=== PATIENT | male | born 1950 | race Caucasian/White ===

== ENCOUNTER → 2019-01-04 14:46 | Outpatient (CLI) | payer MEDICARE ==
[2015-07-19 09:50] VITALS: BMI 27.3
[~2019-01-04 14:46] MED LIST: COZAAR100 MG PO; HYZAAR 100-25 T1 TAB PO; MOBIC7.5 MG PO; PEPCID20 MG PO; TRICOR145 MG PO; VYTORIN 10-40 M1 TAB PO
[2019-01-04 15:25] LABS: BASOPHILS 0.2 % (0-2); EOSINOPHILS 2.2 % (0-7); LYMPHOCYTES 21.2 % (15-50); MCH 35.2 pg (26.0-34.0); MCHC 37.1 g/dL (31.0-37.0); MCV 94.9 fL (80.0-100.0); MEAN PLATELET VOLUME 9.3 fL (7.4-10.4); MONOCYTES 7.5 % (2-11); NEUTROPHILS 68.9 % (40-80); PLATELET COUNT 151 10x3/uL (130-400); RBC 3.69 10x6/uL (4.20-6.10); RDW 15.1 % (11.5-14.5); WBC 5.1 10x3/uL (4.8-10.8)
[2019-01-04 15:44] LABS: % SATURATION 14 % (15-55); IRON 43 ug/dl (35-150); TOTAL IRON BIND CAPACITY 293 ug/dl (260-445); UNSAT IRON BIND CAPACITY 250 ug/dl (150-375)
[2019-01-05 07:14] LABS: HAPTOGLOBIN 133 mg/dL (34-200); IMMUNOGLOBULIN A 88 mg/dL (61-437); IMMUNOGLOBULIN G 755 mg/dL (700-1600); IMMUNOGLOBULIN M 146 mg/dL (20-172)
[2019-01-05 11:10] LABS: ANA REFLEX - DIRECT Negative (Negative)
[2019-01-08 15:09] LABS: BETA-2 MICROGLOBULIN 1.7 mg/L (0.6-2.4)
[2019-01-08 19:08] LABS: IMMUNOGLOBULIN E 49 IU/mL (6-495)
== END | disposition home or self-care (01) ==
LOC: D.LAB 14:46
PROVIDERS: ATTEND Internal Medicine Hematology & Oncology
DX: D50.9 Iron deficiency anemia, unspecified (principal); D59.1 Other autoimmune hemolytic anemias